=== PATIENT | male | born 1955 | race Caucasian/White ===

== ENCOUNTER → 2016-10-05 | Outpatient (CLI) | payer BC ==
[~2016-10-05] MED LIST: HYDROCHLOROTHIA25 MG PO; LIPITOR20 MG PO; MICARDIS80 MG PO; MOBIC15 MG PO; NAPROSYN500 MG PO; OMEPRAZOLE40 MG PO; TOPROL XL50 MG PO
== END | disposition short-term general hospital (02) ==
LOC: CLCARD 08:49
DX: I11.9 Hypertensive heart disease without heart failure (principal); E78.5 Hyperlipidemia, unspecified; I45.10 Unspecified right bundle-branch block; K21.9 Gastro-esophageal reflux disease without esophagitis; Z87.09 Personal history of other diseases of the respiratory system; Z98.890 Other specified postprocedural states